=== PATIENT | male | born 1960 | race Caucasian/White ===

== ENCOUNTER → 2017-12-11 | Outpatient (CLI) | payer BC ==
--- NOTE | 2017-12-11 16:50 | CTL ---
EXAMINATION TYPE: CT Low Dose Lung DATE OF EXAM ORDERED: 12/11/2017 HISTORY: . Lung cancer screening CT DLP: 67.[address] CTDI: 1.7 mGy Automated exposure control for dose reduction was used. SCREENING VISIT: Initial COMPARISON: CT chest 10/05/2015 TECHNIQUE: Low dose computed tomography scan was performed through the chest at 1 mm thick sections a nd reconstructed images in the coronal plane at [address] DIAGNOSTIC QUALITY: Satisfactory FINDINGS: Emphysematous scarring is through the lung apices. Blebs and bulla are present bilaterally upper lung el. This appears stable from comparison. LUNG NODULES: None. LUNGS: COPD: Severity: Severe at the lung apices Fibrosis: Severity: Moderate at the lung apices Lymph nodes: None Other findings: The ascending thoracic aorta at the level the main pulmonary artery is 3.6 cm. The ma in pulmonary artery the bifurcation is 2.4 cm. RIGHT PLEURAL SPACE: Effusion: None Calcification: None Thickening: None Pneumothorax: None LEFT PLEURAL SPACE: Effusion: None Calcification: None Thickening: None Pneumothorax: None HEART: Heart Size: Normal Coronary calcification: Minimal Pericardial effusion: None OTHER FINDINGS: Upper abdomen: Unremarkable Bony thorax: Normal Supraclavicular region: Unremarkable Other: None IMPRESSION: Benign findings FOLLOW UP CT CHEST RECOMMENDATION: Screening CT chest per protocol CT LUNG RAD: Lung rad 2
== END ==
LOC: RADCTMAIN 15:41
PROVIDERS: ATTEND Family Medicine
DX: Z12.2 Encounter for screening for malignant neoplasm of respiratory organs (principal); Z87.891 Personal history of nicotine dependence

== ENCOUNTER → 2019-05-30 | Day surgery (SDC) | payer BC ==
[2019-05-24 16:05] VITALS: BMI 20.6
[~2019-05-30] MED LIST: GLUCAGON 1 MG/ML VIAL ONE; LACTATED RINGERS 1,000 ML IV SCH; LIDOCAINE 1% INJ 10MG/ML (20 ML MDV) ONE; PROPOFOL 10 MG/ML 20 ML VIAL IV ONE
[2019-05-30 09:40] VITALS: RESP 16; TEMP 98.3
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
--- NOTE | 2019-05-30 10:42 | P.OP ---
Date of Procedure: 05/30/19 Preoperative Diagnosis: GERD, anemia Screening colonoscopy Postoperative Diagnosis: Antral gastritis Procedure(s) Performed: EGD Colonoscopy Anesthesia: MAC Surgeon: Abel Mathis Pathology: other (Antrum) Condition: stable Disposition: PACU Description of Procedure: Patient's placed on the endoscopy table in the lateral position. He received IV sedation. The gastroscope placed oropharynx past esophagus and into the stomach. Scope was placed through the pylorus. First and second portion of the duodenum appeared normal. Scope was then brought back the antrum mildly inflamed. A biopsies performed. Scope was then retroflexed the remainder of the stomach appeared normal. There was no significant hiatal hernia. The GE junction was at 40 cm. Distal esophagus appeared normal. The proximal esophagus appeared normal. Scope withdrawn the patient. Next digital rectal exam was performed which revealed no abnormalities. The prostate was symmetric without nodules. The flexible colonoscope was then placed patient anus passed rotator entire colon. The ileocecal valve was visualized. The cecum appeared normal. The right colon appeared normal. In the transverse colon there is a small sessile polyp was removed with the cold forcep. Scope summer back and in the left colon another polyp was seen and removed with the cold forcep. In the sigmoid colon there was a large peduncular polyp and this is removed with the snare. The rectum appeared normal. Scope was withdrawn for patient.
[2019-05-30 11:12] VITALS: BP 130/87; PULSE 75
== END | disposition home or self-care (01) ==
LOC: ORWHC2ENDO 09:22
PROVIDERS: ATTEND Surgery
DX: K29.50 Unspecified chronic gastritis without bleeding (principal); K21.9 Gastro-esophageal reflux disease without esophagitis; D12.3 Benign neoplasm of transverse colon; Z12.11 Encounter for screening for malignant neoplasm of colon; D64.9 Anemia, unspecified; F17.200 Nicotine dependence, unspecified, uncomplicated; I10 Essential (primary) hypertension; I25.2 Old myocardial infarction; J44.9 Chronic obstructive pulmonary disease, unspecified; M19.90 Unspecified osteoarthritis, unspecified site; Z85.46 Personal history of malignant neoplasm of prostate; Z79.891 Long term (current) use of opiate analgesic; Z79.899 Other long term (current) drug therapy
CPT/HCPCS: 88305; 45380; 45385; 43239; J1610; J2001; J2704

== ENCOUNTER → 2019-08-22 | Outpatient (CLI) | payer BC ==
--- NOTE | 2019-08-22 16:42 | CT ---
EXAMINATION TYPE: CT cervical spine wo con DATE OF EXAM: 08/22/2019 COMPARISON: 12/11/2010 HISTORY: Neck pain and stiffness. CT DLP: 280.5 mGycm CONTRAST: None CT of the cervical spine is performed in the axial plane at 2 mm thick sections. Reconstructed image s in the coronal, and sagittal plane are reviewed on the computer. No acute fractures are evident. Vertebral body alignment is normal. There is loss of disc height C5-6. Anterior vertebral body spurring is present at C5-6. Minimal poste rior endplate spurring may be present C5-6 and C6-7. Vertebral body heights are preserved. There is a central and right paracentral endplate spur at C3 with moderate anterior thecal sac compre ssion. No AP spinal canal stenosis is present. Uncovertebral joint hypertrophy is present C5-6 with m oderate to severe bilateral foraminal stenosis. Moderate left foraminal stenosis present C6-7 IMPRESSIONS: 1. Degenerative disc changes C5-6. 2. Foraminal stenosis C5-6 and left C6-7. 3. Small posterior endplate spur C3.
--- NOTE | 2019-08-22 16:49 | CTL ---
EXAMINATION TYPE: CT Low Dose Lung DATE OF EXAM ORDERED: 08/22/2019 HISTORY: Personal history of tobacco use. Lung cancer screening CT DLP: 63.[address] CTDI: 1.5 mGy Automated exposure control for dose reduction was used. SCREENING VISIT: Follow-up COMPARISON: 12/11/2017 TECHNIQUE: Low dose computed tomography scan was performed through the chest at 1 mm thick sections a nd reconstructed images in the coronal plane at [address] DIAGNOSTIC QUALITY: Satisfactory FINDINGS: LUNG NODULES: None. There is a stable 3.1 x 1.3 cm area at the left apex. This extends into an area of pleural thickening . Series 4 image 56. There is an area of increased density within the posterior right upper lobe measuring 1.9 x 1.2 cm. S eries 4 image 79. This is stable. There is a punctate nodule in the posterior lateral right lung measuring 0.4 cm. Series 4 image 318. Present previously may be slightly more prominent. There is degenerative pneumonitis within the posterior lateral left lung. Series 4 image 117. LUNGS: COPD: Severity: Moderately advanced Fibrosis: Severity: Moderately advanced Lymph nodes: None Other findings: None RIGHT PLEURAL SPACE: Effusion: None Calcification: None Thickening: None Pneumothorax: None LEFT PLEURAL SPACE: Effusion: None Calcification: None Thickening: None Pneumothorax: None HEART: Heart Size: Normal Coronary calcification: Mild Pericardial effusion: None OTHER FINDINGS: Upper abdomen: Normal Bony thorax: Normal Supraclavicular region: Normal Other: Ascending thoracic aorta at the level the main pulmonary artery measures 3.7 cm. The main pul monary artery at the bifurcation measures 2.4 cm. IMPRESSION: Probably benign findings FOLLOW UP CT CHEST RECOMMENDATION: Follow-up low-dose CT chest [address] LUNG RAD: 3
== END ==
LOC: RADCTMAIN 15:47
PROVIDERS: ATTEND Family Medicine
DX: Z12.2 Encounter for screening for malignant neoplasm of respiratory organs (principal); F17.200 Nicotine dependence, unspecified, uncomplicated; M48.02 Spinal stenosis, cervical region; M47.812 Spondylosis without myelopathy or radiculopathy, cervical region
CPT/HCPCS: 72125; G0297

== ENCOUNTER → 2020-08-27 | Outpatient (CLI) | payer BC ==
--- NOTE | 2020-08-28 09:06 | CTL ---
EXAMINATION TYPE: CT Low Dose Lung DATE OF EXAM ORDERED: 08/27/2020 HISTORY: Personal history of tobacco use. Lung cancer screening CT DLP: [address] CTDI: 1.6 mGy Automated exposure control for dose reduction was used. SCREENING VISIT: Yes COMPARISON: CT low dose lung screening 08/22/2019, 12/11/2017 TECHNIQUE: Low dose computed tomography scan was performed through the chest at 1 mm thick sections a nd reconstructed images in the coronal plane at [address] DIAGNOSTIC QUALITY: Satisfactory FINDINGS: LUNG NODULES: None. Within the left lower lobe at the base (4:296) there is a 6 x 4 mm focus of likely mucus plugging wit hin bronchiectasis, which can be seen incompletely filling this bronchial on 2018 CT comparison (4:28 4-290), less likely to represent a pulmonary nodule. LUNGS: COPD: Severity: Moderate, paraseptal Fibrosis: Severity: Mild to moderate Lymph nodes: None Other findings: None RIGHT PLEURAL SPACE: Effusion: None Calcification: Minimal calcification at the apex Thickening: Apical thickening and scarring not significantly changed Pneumothorax: None LEFT PLEURAL SPACE: Effusion: None Calcification: Minimal calcification at the apex Thickening: Apical thickening and scarring not significantly changed Pneumothorax: None HEART: Heart Size: Normal Coronary calcification: Minimal Pericardial effusion: None OTHER FINDINGS: Upper abdomen: None Bony thorax: Degenerative change Supraclavicular region: None Other: None IMPRESSION: Benign appearance. FOLLOW UP CT CHEST RECOMMENDATION: Follow up low dose CT in [address] LUNG RAD: Lung-Rad 2 Benign Appearance or Behavior
== END | disposition home or self-care (01) ==
LOC: RADCTMAIN 15:36
PROVIDERS: ATTEND Family Medicine
DX: Z12.2 Encounter for screening for malignant neoplasm of respiratory organs (principal); F17.210 Nicotine dependence, cigarettes, uncomplicated

== ENCOUNTER → 2021-11-20 | Outpatient (CLI) | payer BC ==
--- NOTE | 2021-11-21 09:22 | CTL ---
EXAMINATION TYPE: CT Low Dose Lung DATE OF EXAM ORDERED: 11/20/2021 HISTORY: 60-year-old male Z87.891 Personal History of tobacco use. Lung cancer screening CT DLP: 77.[address] CTDI: 2.0 mGy Automated exposure control for dose reduction was used. SCREENING VISIT: Annual follow-up COMPARISON: 08/27/2020 TECHNIQUE: Low dose computed tomography scan was performed through the chest with coronal and sagitta l reconstructions. Additional coronal MIP reconstruction performed. CT DIAGNOSTIC QUALITY: Satisfactory FINDINGS: Heart normal size without pericardial effusion. Borderline ectasia aortic root at 3.6 cm. Mild atherosclerotic arch calcifications and mitral arch ve ssel branching anatomy. Enlarged caliber to the main right and left pulmonary arteries measuring 2.9 and 2.6 cm, respectively , suggesting underlying pulmonary arterial hypertension. Apical bulla with pleural parenchymal scarring redemonstrated. Somewhat masslike areas of pleural par enchymal thickening are redemonstrated, for example, posterior right apex measuring 2.3 x 1.2 cm vers us 2.2 x 1.4 cm, previously. Mild to moderate centrilobular and paraseptal emphysema is similar. Mild diffuse bronchial wall thickening. Strandy subpleural areas of atelectasis or scarring in the right lung. Stable 6 mm anterior left basilar pulmonary nodule and adjacent calcified granuloma. No consolidation or pleural effusion. Visualized upper abdomen shows no abnormality. Bones: Mild degenerative disc disease midthoracic spine. IMPRESSION: 1. LungRADS 2, benign. Biapical pleural parenchymal scarring with some masslike areas of thickening, unchanged. Additional 6 mm left basilar pulmonary nodule unchanged. 2. COPD with a bullous apical change and moderate emphysema. Pulmonary arterial hypertension. CT LUNG RAD AND CT CHEST RECOMMENDATION: Lung-Rad 2 Benign Appearance or Behavior: Continue annual sc reening with LDCT in 12 months. S Modifier (other clinically significant findings): None
== END | disposition home or self-care (01) ==
LOC: RADCTMAIN 16:04
PROVIDERS: ATTEND Family Medicine
DX: Z12.2 Encounter for screening for malignant neoplasm of respiratory organs (principal); J43.2 Centrilobular emphysema; J98.4 Other disorders of lung; I27.21 Secondary pulmonary arterial hypertension; R91.1 Solitary pulmonary nodule; Z87.891 Personal history of nicotine dependence
CPT/HCPCS: 71271

== ENCOUNTER → 2024-05-23 | Outpatient (CLI) | payer BC ==
--- NOTE | 2024-05-29 19:22 | CTL ---
EXAMINATION TYPE: CT Low Dose Lung DATE OF EXAM ORDERED: 05/23/2024 HISTORY: 63-year-old male Z12.2, F17.210, current smoker with 40 pack-year history. Lung cancer scree aliyah CT DLP: 61.[address] CTDI: 1.5 mGy Automated exposure control for dose reduction was used. SCREENING VISIT: Annual follow-up COMPARISON: 11/20/2021 TECHNIQUE: Low dose computed tomography scan was performed through the chest at 1 mm thick sections a nd reconstructed images in multiple planes at 1 mm and [address] DIAGNOSTIC QUALITY: Satisfactory FINDINGS: The heart is normal size without pericardial effusion. Ectatic aortic root at 3.6 cm with mild atherosclerotic arch calcifications and conventional arch ves nancy branching anatomy. No thoracic lymphadenopathy by CT size criteria. There is moderate emphysematous change in scattered pleural parenchymal scarring. Changes are greates t in the bilateral apices and upper lung. A masslike opacity posterior right upper lung measures 2.5 x 1.4 cm versus 2.3 x 1.2 cm, previously. The overall appearance is slightly more bulky than prior exam. Otherwise, the overall configuration of the pleural parenchymal opacity is similar. There is focal new 7 mm endobronchial opacification in the left lower lobe on axial image 235. No consolidation or pleural effusion. Visualized upper abdomen shows no gross adenopathy. Bones: No osseous destructive process. IMPRESSION: 1. LungRADS 3, probably benign; masslike opacities in the apices and upper lungs relating to pleural parenchymal scarring is redemonstrated but slightly bulkier in the right upper lung currently 2.5 x 1 .4 cm versus 2.3 x 1.2 cm, previously. Possible progressive scarring. Short interval follow-up recomm ended to reassess. Also, 7 mm endobronchial opacification left lower lobe may reflect some mucoid matheus ris. This should also be reassessed at follow-up. 2. COPD with moderate emphysema and apical bullous change. CT LUNG RAD AND CT CHEST RECOMMENDATION: Lung-Rad 3 Probably Benign: 6 month follow-up LDCT. S Modifier (other clinically significant findings): None
== END | disposition home or self-care (01) ==
LOC: RADCTMAIN 11:53
PROVIDERS: ATTEND Family Medicine
DX: Z12.2 Encounter for screening for malignant neoplasm of respiratory organs (principal); F17.210 Nicotine dependence, cigarettes, uncomplicated; J43.9 Emphysema, unspecified; J44.9 Chronic obstructive pulmonary disease, unspecified; R91.8 Other nonspecific abnormal finding of lung field; J98.4 Other disorders of lung
CPT/HCPCS: 71271

== ENCOUNTER → 2024-11-22 | Outpatient (CLI) | payer BC ==
--- NOTE | 2024-11-22 10:46 | XR ---
EXAMINATION TYPE: XR foot limited bilateral DATE OF EXAM: 11/22/2024 10:41 AM INDICATION: Patient age:Male; 63 years old; Reason for study: M79.672 PAIN IN LEFT FOOT M79.671 PAIN IN RIGHT FO; PH[facility]. pain COMPARISON: None TECHNIQUE: Both feet were examined in AP and lateral views. FINDINGS: No evidence of any acute osseous pathology. No osseous erosions. No evidence of soft tissue swelling. Joints are preserved. No radiopaque foreign body. IMPRESSION: No evidence of acute fracture. [facility], , 11/22/2024 10:44 AM
== END | disposition home or self-care (01) ==
LOC: RADXRMAIN 10:23
PROVIDERS: ATTEND Family Medicine
DX: M79.672 Pain in left foot (principal); M79.671 Pain in right foot

== ENCOUNTER → 2025-01-13 | Outpatient (CLI) | payer BC ==
--- NOTE | 2025-01-13 10:39 | CT ---
EXAMINATION TYPE: CT chest w con DATE OF EXAM: 01/13/2025 COMPARISON: 10/05/2015 and 05/23/2024 CLINICAL INDICATION: Male, 64 years old with history of I73.9 PERIPHERAL VASCULAR DISEASE R91.1 SOLIT MAXWELL P; PH, LUNG NODULE TECHNIQUE: CT scan of the chest is performed with IV Contrast, patient injected with 100 mL of Isovue 300. MIP Images are created on CT scanner and reviewed. 3D reconstructed images are created on an independent workstation and reviewed. CT DLP: [address] CTDI: mGy Automated exposure control for dose reduction was used. FINDINGS: LUNGS: Posterior right upper lobe masslike density persists although is smaller in size and currently measures about 1.4 x 1.2 cm versus 2.5 x 1.4 cm previously. Additional masslike density left upper l obe also persists and is smaller in size and currently measures 1.4 x 1.2 cm versus prior measurement of 3.9 x 1.0 cm. The findings are likely postinflammatory in nature however continued follow-up in 6 months is advised. Severe emphysematous bullous change noted within the lung apices with associated scarring. No new nodules or masses appreciated. Emphysematous bulla is noted within the right lower l obe. The lungs are hyperinflated. MEDIASTINUM: There are no greater than 1 cm hilar or mediastinal lymph nodes. No pericardial effusi on is seen. OTHER: No additional significant abnormality is seen. IMPRESSION: Masslike opacities within the upper lobes persist although are smaller in size relative to the prior study likely reflecting postinflammatory changes. Neoplasm is not excluded however and c ontinued follow-up in 6 months advised. Follow-up recommendations for incidental pulmonary nodules are per [employer] or [employer]. [facility], , 01/13/2025 10:37 AM
--- NOTE | 2025-01-13 11:02 | US ---
EXAMINATION TYPE: US venous doppler duplex LE BI DATE OF EXAM: 01/13/2025 10:42 AM COMPARISON: NONE CLINICAL INDICATION: Male, 64 years old with history of I73.9 PAD; pain, Pain TECHNIQUE: The lower extremity deep venous system is examined utilizing real time linear array sonog vivian with graded compression, color doppler sonography, and spectral doppler. SIDE PERFORMED: Bilateral FINDINGS: VESSELS IMAGED: Common Femoral Vein Deep Femoral Vein Greater Saphenous Vein * Femoral Vein Popliteal Vein Small Saphenous Vein * Proximal Calf Veins (* superficial vessels) Right Leg: Negative for DVT, Color Doppler imaging shows patency of the vessels. Spectral waveforms are within normal limits. Left Leg: Negative for DVT, Color Doppler imaging shows patency of the vessels. Spectral waveforms a re within normal limits. IMPRESSION: No ultrasound evidence for deep venous thrombosis. [facility], , 01/13/2025 11:00 AM
== END | disposition home or self-care (01) ==
LOC: RADCTMAIN 09:42
PROVIDERS: ATTEND Family Medicine
DX: I73.9 Peripheral vascular disease, unspecified (principal); R91.1 Solitary pulmonary nodule
CPT/HCPCS: 93970; 71260; Q9967